=== PATIENT | female | born 1980 | race Caucasian/White ===

== ENCOUNTER 2023-07-20 14:39 | Emergency (ER) | payer MEDICAID ==
[~2023-07-20] VITALS: Ht 167.6 cm; Wt 72.6 kg
[2023-07-20 14:51] VITALS: PULSE 123; RESP 22; TEMP 98.1; O2SAT 98
[2023-07-20 14:53] VITALS: BP 151/103; PULSE 82; RESP 18; TEMP 98; O2SAT 98
[2023-07-20 15:20] LABS: BASOPHILS % (AUTO) 0.6 % (0.0-2.0); EOSINOPHILS # (AUTO) 0.1 K/uL (0-0.4); EOSINOPHILS % (AUTO) 2.3 % (0.0-4.0); HEMATOCRIT 42.5 % (36-48); HEMOGLOBIN 14.6 g/dL (12.0-16.0); LYMPHOCYTES # (AUTO) 2.4 K/uL (2.5-16.5); LYMPHOCYTES % (AUTO) 37.8 % (20.5-51.1); MEAN CORPUSCULAR HEMOGLOBIN 30 pg (27-31); MEAN CORPUSCULAR HGB CONC 34 g/dL (33-37); MEAN CORPUSCULAR VOLUME 85.9 fL (80-94); MONOCYTES # (AUTO) 0.4 K/uL (0.8-1.0); MONOCYTES % (AUTO) 5.6 % (1.7-9.3); NEUTROPHILS # (AUTO) 3.4 K/uL (1.8-7.7); NEUTROPHILS % (AUTO) 53.7 % (42.2-75.2); PLATELET COUNT (AUTO) 381 K/uL (140-450); RED BLOOD CELL COUNT(AUTO) 4.94 MIL/uL (4.20-5.40); RED CELL DISTRIBUTION WIDTH 13.1 % (11.6-13.7); WHITE BLOOD COUNT (AUTO) 6.3 K/uL (4.8-10.8)
[2023-07-20 15:35] LABS: ANION GAP 12.5 (8-16); CALCIUM 8.5 mg/dL (8.5-10.1); CARBON DIOXIDE 28.2 mmol/L (21-32); CREATININE 0.7 mg/dL (0.6-1.3); POTASSIUM 3.7 mmol/L (3.5-5.1)
[2023-07-20] MEDS ORDERED: predniSONE 20 MG TAB PO ONE (16:05)
[2023-07-20] MEDS ORDERED: ACYCLOVIR 200 MG CAP PO ONE (16:05)
[2023-07-20] MEDS ORDERED: ERYT5OIN51 OP (16:09)
[2023-07-20] MEDS ORDERED: ACYC400T14 PO (16:09)
[2023-07-20] MEDS ORDERED: PROP1.5D OP (16:09)
[2023-07-20] MEDS ORDERED: PRED20TA5 PO (16:09)
[2023-07-20 17:20] VITALS: BP 144/78; PULSE 82; RESP 18; TEMP 98; O2SAT 98
[2023-07-20 17:50] LABS: FLU A ANTIGEN negative (NEGATIVE); FLU B ANTIGEN NEGATIVE (NEGATIVE)
== END 2023-07-20 16:21 | disposition home or self-care (01) ==
LOC: MED 14:39
DX: G51.0 Bell's palsy (principal); Z20.822 Contact with and (suspected) exposure to COVID-19; E11.65 Type 2 diabetes mellitus with hyperglycemia; Z79.4 Long term (current) use of insulin; Z79.899 Other long term (current) drug therapy
CPT/HCPCS: 36415; 70450; 80048; 81025; 85025; 87426; 87804; 99284; J7512